=== PATIENT | female | born 1990 | race African-American/Black ===

== ENCOUNTER 2020-05-18 22:46 | Emergency (ER) | payer OTHER, SELFPAY ==
[2020-05-18 22:54] VITALS: BP 124/80; PULSE 93; RESP 16; TEMP 36.6; O2SAT 100; BMI 30.4
--- NOTE | 2020-05-18 23:10 | ED.EXTPRO ---
HPI - Extremity Problem General Chief complaint: Extremity Problem,Nontraumatic Stated complaint: RT hand to elbow pain Time Seen by Provider: 05/18/20 23:02 Source: patient Mode of arrival: Ambulatory Limitations: no limitations History of Present Illness HPI Narrative: 30-year-old otherwise healthy female here for evaluation of approximately 3 hours of tingling and the feeling of cramping in her right arm and hand. She states that she was holding a glass of water at the time and then she stated that she felt like her hand was going to cramp up. She then started having tingling up into her fingers and then it started moving upper arm into her elbow. Has never had anything like this in the past. Took some ibuprofen prior to arrival without any improvement. Review of Systems Constitutional Constitutional: Denies fever(s) Musculoskeletal Musculoskeletal: Reports tingling Comments: Right arm/hand pain Integumentary/Breasts Skin/Breast: Denies lesions and Denies rash Neurologic Neurologic: Reports tingling Hematologic/Lymphatic Hematologic/Lymphatic: Denies easy bleeding and Denies easy bruising Patient History Medical History Healthy adult (Acute) alcohol intake frequency: holidays/special occasions only Substance Use Type: does not use Exam Initial Vital Signs Initial Vital Signs: Vital Signs Temperature 97.9 F 05/18/20 22:54 Pulse Rate 93 H 05/18/20 22:54 Respiratory Rate 16 05/18/20 22:54 Blood Pressure 124/80 05/18/20 22:54 Pulse Oximetry 100 05/18/20 22:54 Const General: cooperative and comfortable Limitations: mental status not altered [facility] Head: normal to inspection and normocephalic Cardio Pulses: radial pulses present on the right Skin Lesions: no lesions Rashes: no rashes Neuro General: patient alert, patient awake and patient oriented x3 Cognition: normal cognition Speech: speech normal Motor: muscle tone normal throughout Sensory Exam: no sensory deficits noted Extrem General: normal to inspection, capillary refill normal and No edema Right upper extremity: full ROM, wrist Details: normal to inspection and normal ROM; no tenderness and no ecchymosis and hand Details: normal to inspection, normal capillary refill, neuromotor exam normal and no swelling; no cyanosis and no edema Course Orders Ordered: Discontinued Medications Tramadol HCl (Ultram) 50 mg PO NOW ONE Stop: 05/18/20 23:12 Last Admin: 05/18/20 23:16 Dose: 50 mg Documented by: SHIVA Tramadol HCl (Ultram 50mg Prepack) 1 bottle MISC SEEINSTR ONE Stop: 05/18/20 23:12 Last Admin: 05/18/20 23:16 Dose: 1 bottle Documented by: SHIVA Vital Signs Vital signs: Vital Signs - 8 hr 05/18/20 22:54 Temperature 97.9 F Pulse Rate 93 H Respiratory Rate 16 Blood Pressure 124/80 Pulse Oximetry 100 MDM - Extremity (Nontraumatic) MDM Narrative Medical decision making narrative: I do not feel any specific muscle spasms. Initially was thinking that the patient potentially was having a carpal tunnel issue given the description of her symptoms however her exam is not 100% consistent with this. She has a normal objective neurovascular exam. No trauma. Feel we can hold on radiologic studies for now. Unsure the exact etiology however will have her continue with the anti-inflammatories and also provide tramadol for symptom control. Patient was given return precautions and follow-up instructions. She expressed understanding and agreement. Discharge Plan Departure Patient Disposition: Home Clinical Impression: Arm paresthesia, right Discharge Date/Time: 05/18/20 23:23 Activity Restrictions/Additional Instructions: Recommend that you continue with the anti-inflammatories such as Motrin or Naprosyn. Also recommend light stretching. Take the tramadol you were given here in the emergency department as directed. Return to the emergency department for any new or worsening symptoms. Also recommend you contact your medical department for discussion of referral to physical therapy.
[2020-05-18] MEDS: TRAMADOL 50 MG TABLET PO (23:16)
[2020-05-18] MEDS: TRAMADOL 50 MG PREPACK 1 BOTTLE MISC (23:16)
== END 2020-05-18 23:23 | disposition home or self-care (01) ==
PROVIDERS: Emergency Provider Emergency Medicine
DX: R20.2 Paresthesia of skin (principal)
CPT/HCPCS: 99283

== ENCOUNTER 2021-04-06 08:37 | Emergency (ER) | payer OTHER, SELFPAY ==
--- NOTE | 2021-04-06 08:44 | ED_ITS ---
HPI - Extremity Injury (Upper) General Chief Complaint: Extremity Problem,Nontraumatic Stated Complaint: woke up with right wrist pain Time Seen by Provider: 04/06/21 08:44 History of Present Illness HPI narrative: 31-year-old female nonsmoker with history of carpal tunnel presents with a chief complaint of right wrist pain that woke her up this morning. 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 She has had trouble with carpal tunnel in the past but has not been wearing a splint or taking anti- inflammatories. She states that she has pain in her wrist as well as some tingling and pain and her thumb index and middle finger. She denies any known injury. She denies any redness, warmth or swelling. She has had no systemic findings such as fever, chills nor nausea or vomiting Related Data Previous Rx's Medication Instructions Recorded ketorolac 10 mg tablet 10 mg PO Q6H PRN #14 tab 04/06/21 Allergies Allergy/AdvReac Type Severity Reaction Status Date / Time No Known Drug Allergies Allergy Verified 04/06/21 08:53 Review of Systems Review of Systems Narrative: GENERAL: Denies chills, fatigue, malaise, fever, sweats. HEENT: Denies sinus pain, ear pain, sore throat, difficulty swallowing, dizz iness. RESPIRATORY: Denies dyspnea, cough, wheezing, hemoptysis, sputum. CARDIOVASCULAR: Denies chest pain, palpitations, orthopnea, edema, GASTROINTESTINAL: Denies nausea, vomiting, abdominal pain, diarrhea, constipation, melena. : Denies dysuria, frequency, incontinence, hematuria, urinary retention. MUSCULOSKELETAL: See HPI SKIN: Denies rash, skin lesions, or other NEUROLOGIC: See HPI PSYCHIATRIC: No concerning psychosocial issues. 12 point review of systems is negative except for those stated above Patient History Medical History Healthy adult Social History Smoking Status: Never smoker alcohol intake frequency: holidays/special occasions only Substance Use Type: does not use Exam Narrative Exam Narrative: GEN: AOx3 and in mild distress EYES: Pupils are equal, round, and reactive to light and accommodation. Extraoccular muscles are intact bilaterally. There is no subconjunctival hemorrhage or exudate. CHEST: Lungs are clear to auscultation bilaterally and free of wheezes, rales, or rhonchi. Heart rate is regular rhythm, there are no murmurs, clicks, rubs, or gallops. There is no chest wall tenderness. ABD: Abdomen is soft and nontender. There is no guarding or rebound. Bowel rafael nds are normal in all 4 quadrants. There is no mass or organomegaly. EXT: Full but painful range of motion overlying the lateral carpals on the volar aspect of right wrist. There is some increased pain with Tinel's sign. Reverse Phalen's worsens symptoms. No obvious swelling, erythema, warmth, induration or fluctuance. SKIN: Warm, pink, and dry. No erythema or rash Initial Vital Signs Initial Vital Signs: Vital Signs Temperature 98.3 F 04/06/21 08:53 Pulse Rate 74 04/06/21 08:53 Respiratory Rate 18 04/06/21 08:53 Blood Pressure 111/74 04/06/21 08:53 Pulse Oximetry 100 04/06/21 08:53 Course Vital Signs Vital signs: Vital Signs - 8 hr 04/06/21 08:53 Temperature 98.3 F Pulse Rate 74 Respiratory Rate 18 Blood Pressure 111/74 Pulse Oximetry 100 MDM - Extremity Injury (Upper) MDM Narrative Medical decision making narrative: Multiple diagnoses considered of the painful joint in the absence of injury including cellulitis, septic joint, gout but thought unlikely given lack of erythema, warmth or systemic findings. Exam is very consistent with likely carpal tunnel. Return precautions given and questions answered to her apparent satisfaction Discharge Plan Departure Patient Disposition: Home Clinical Impression: Acute carpal tunnel syndrome of right wrist Instructions: DI for Carpal Tunnel Syndrome Activity Restrictions/Additional Instructions: *You have been diagnosed with [carpal tunnel syndrome of your right wrist] *What to do: *Please continue to take your regular medications as directed. [x ] New medication prescriptions sent to your pharmacy: [[facility] in [place] ] [ ] Wear the splint your PCP gave you *Please follow up with your primary care provider in 2-3 days, call for an a ppointment. Let them know you were seen in the Emergency Department and that we ask that you be seen in follow up. We will electronically transmit a record of today's note if your PCP is in our system *If you do not have a primary care provider please contact the [facility] Resource line at [phone]. They will ask some questions about your medical history and help get you set up with a doctor in the community. *Return to Emergency Department if you should have any new, worsening or concerning symptoms, such as [fever greater than 101 F, shaking chills, worsening pain, persistent vomiting or other bothersome symptoms] Prescriptions: New ketorolac 10 mg tablet 10 mg PO Q6H PRN (Reason: pain) Qty: 14 RF: 0 Referrals: Yoselin Laws MD [Primary Care Provider] -
[2021-04-06 08:53] VITALS: BP 111/74; PULSE 74; RESP 18; TEMP 36.8; O2SAT 100; BMI 27.6
== END 2021-04-06 09:12 | disposition home or self-care (01) ==
PROVIDERS: Emergency Provider Emergency Medicine; PCP Family Medicine
DX: G56.01 Carpal tunnel syndrome, right upper limb (principal)
CPT/HCPCS: 99281

== ENCOUNTER 2021-09-04 13:08 | Emergency (ER) | payer OTHER, SELFPAY ==
[2021-09-04 13:32] VITALS: BP 116/68; PULSE 81; RESP 18; TEMP 36.6; O2SAT 100; BMI 30.1
--- NOTE | 2021-09-04 13:38 | DI.RAD.S_ITS ---
PROCEDURE: XR ELBOW RT MIN 3V INDICATIONS: finger pain (4th digit) and hand/wrist pain TECHNIQUE: 3 views of the elbow were acquired. COMPARISON: None. FINDINGS: Bones: No fractures or dislocations. No suspicious bony lesions. Soft tissues: No elbow joint effusion. No suspicious soft tissue calcifications. IMPRESSION: Normal right elbow. Dictated by: Dom Avery M.D. on 09/04/2021 at 14:05 Approved by: Dom Avery M.D. on 09/04/2021 at 14:05
--- NOTE | 2021-09-04 13:38 | DI.RAD.S_ITS ---
PROCEDURE: XR WRIST RT MIN 3V INDICATIONS: finger pain (4th digit) and hand/wrist pain TECHNIQUE: 3 views of the wrist were acquired. COMPARISON: None. FINDINGS: Bones: No fractures or dislocations. No suspicious bony lesions. Scaphoid view: Intact. Soft tissues: No suspicious soft tissue calcifications. IMPRESSION: No acute osseous abnormality. Dictated by: Bill Zuniga M.D. on 09/04/2021 at 13:59 Approved by: Bill Zuniga M.D. on 09/04/2021 at 14:00
--- NOTE | 2021-09-04 13:38 | DI.RAD.S_ITS ---
PROCEDURE: XR HAND RT MIN 3V INDICATIONS: finger pain (4th digit) and hand/wrist pain TECHNIQUE: 3 views of the hand(s) acquired. COMPARISON: None. FINDINGS: Bones: No fractures or dislocations. Carpal bones are normally aligned. No suspicious bony lesions. Soft tissues: No suspicious soft tissue calcifications. IMPRESSION: No visualized acute fracture or dislocation. However, if clinical concern and/or pain persist, short interval imaging followup in 7-10 days is recommended, as occult injury cannot be definitively excluded. Dictated by: Amalia Lanza M.D. on 09/04/2021 at 13:59 Approved by: Amalia Lanza M.D. on 09/04/2021 at 14:00
[2021-09-04 16:23] VITALS: BP 106/71; PULSE 82; TEMP 36.6; O2SAT 100
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
[2021-09-04 18:10] VITALS: BP 109/65; PULSE 70; RESP 16; O2SAT 100
== END 2021-09-04 18:14 | disposition home or self-care (01) ==
PROVIDERS: Emergency Provider Emergency Medicine; PCP Family Medicine
DX: S60.041A Contusion of right ring finger without damage to nail, initial encounter (principal); S01.511A Laceration without foreign body of lip, initial encounter; M25.531 Pain in right wrist; M25.521 Pain in right elbow; Y04.2XXA Assault by strike against or bumped into by another person, initial encounter
CPT/HCPCS: 73080; 73110; 73130; 99283

== ENCOUNTER 2022-01-10 19:56 | Emergency (ER) | payer OTHER, SELFPAY ==
[2022-01-10 20:15] VITALS: BP 130/85; PULSE 73; RESP 18; TEMP 36.8; O2SAT 100; BMI 29.5
--- NOTE | 2022-01-10 20:32 | DI.RAD.S_ITS ---
PROCEDURE: XR HAND RT MIN 3V INDICATIONS: gate fell on fingers, 4th and 3rd digits painful and swollen TECHNIQUE: 3 views of the hand acquired. COMPARISON: [facility], CR, XR HAND RT MIN 3V, 09/04/2021, 13:38. FINDINGS: Bones: There is a mildly displaced fracture in the 3rd distal phalanx. No dislocations. Carpal bones are normally aligned. No suspicious bony lesions. Soft tissues: No suspicious soft tissue calcifications. IMPRESSION: 1. Mildly displaced fracture of the 3rd distal phalanx. Dictated by: Landen James M.D. on 01/10/2022 at 21:46 Approved by: Landen James M.D. on 01/10/2022 at 21:48
[2022-01-10 23:33] VITALS: PULSE 75; O2SAT 98
[2022-01-10 23:34] VITALS: BP 116/68; PULSE 81; O2SAT 98
--- NOTE | 2022-01-11 00:25 | ED_ITS ---
HPI - Extremity Injury (Upper) General Chief Complaint: Extremity Injury, Upper Stated Complaint: fell into sticker de paz, gate landed on top of her Time Seen by Provider: 01/11/22 00:24 Source: patient Mode of arrival: Ambulatory Limitations: no limitations History of Present Illness HPI narrative: This is a 31-year-old female comes emergency department after falling into a de paz. Patient was working on a fence. The sense fell on to her. She fell into a sticker de paz. She has her her middle finger on her left hand. She has a small abrasion blister just adjacent to the nail. She has multiple scratches and abrasions and several small punctate areas of thorn in her feet in arms. Patient is otherwise healthy she takes citalopram daily but no other daily medications. States her tetanus is up-to-date. Denies any other injuries. No known drug allergies. Related Data Previous Rx's Medication Instructions Recorded ketorolac 10 mg tablet 10 mg PO Q6H PRN #14 tab 04/06/21 Allergies Allergy/AdvReac Type Severity Reaction Status Date / Time No Known Drug Allergies Allergy Verified 01/10/22 20:29 Review of Systems Review of Systems ROS Unobtainable: All systems reviewed & are unremarkable except as noted in HPI and below Patient History Medical History Healthy adult Social History Smoking Status: Never smoker Smoking Status: Never smoker alcohol intake frequency: holidays/special occasions only Substance Use Type: does not use Exam Narrative Exam Narrative: GENERAL: Alert and oriented x three, female in mild distress. HEENT: Head normocephalic, atraumatic, EOMI, pupils reactive, face symmetric, moist mucous membranes NECK: Supple, full range of motion CARDIOVASCULAR: Regular rate and rhythm without murmurs, rubs or gallops. RESPIRATORY: Breath sounds equal bilaterally, no wheezes rales or rhonchi. ABDOMEN: Soft, nontender. Normoactive bowel sounds all 4 quadrants. No guarding or rebound, rigidity, no mass : No CVA tenderness EXTREMITIES: Normal range of motion, no clubbing or edema. Neurovascularly intact. Patient has tenderness of distal finger, 3rd finger on the right hand. Full range of motion. Cap refill less than 3 seconds. NEUROLOGICAL: Cranial nerves II through XII grossly intact. Moving all extremities SKIN: Warm, dry, no petechiae, no rashes. Patient has multiple abrasions on bilateral upper extremities, she has a small hematoma and abrasion just proximal to the nail of the 3rd digit on her right hand. Patient has multiple thorns and small abrasions on her feet and 1 small superficial laceration on the 3rd toe of her right foot. No signs of erythema or infection noted. Initial Vital Signs Initial Vital Signs: Vital Signs Temperature 98.3 F 01/10/22 20:15 Pulse Rate 73 01/10/22 20:15 Respiratory Rate 18 01/10/22 20:15 Blood Pressure 130/85 01/10/22 20:15 Pulse Oximetry 100 01/10/22 20:15 Course Orders Ordered: ED Orders 01/10/22 20:32 XR hand RT min 3V Stat Vital Signs Vital signs: Vital Signs - 8 hr 01/10/22 20:15 01/10/22 23:33 01/10/22 23:34 Temperature 98.3 F Pulse Rate 73 75 81 Respiratory Rate 18 Blood Pressure 130/85 116/68 Pulse Oximetry 100 98 98 MDM - Extremity Injury (Upper) Imaging Data Extremity x-ray #1: Radiologist's Impression: [place] [address] XRay Report Signed Patient: Anne-Marie Newell MR#: [id number] : 1990 Acct:[id number] Age/Sex: 31 / F Date of Service: 01/10/22 Loc: ED Accession Number: [id number] ?? Procedure: XR hand RT min 3V Ordering Provider: Riddhi Souza D.O. PROCEDURE:? XR HAND RT MIN 3V ? INDICATIONS:? gate fell on fingers, 4th and 3rd digits painful and swollen ? TECHNIQUE:? 3 views of the hand acquired.? ? [facility] 13[facility]38. ? FINDINGS:? ? Bones:? There is a mildly displaced fracture in the 3rd distal phalanx.? No dislocations. ?Carpal bones are normally aligned.? No suspicious bony lesions.? ? Soft tissues:? No suspicious soft tissue calcifications.? ? ? IMPRESSION:? ? 1. Mildly displaced fracture of the 3rd distal phalanx. ? ? Dictated by: Landen James M.D. on 01/10/2022 at 21:46 ? ? Approved by: Landen James M.D. on 01/10/2022 at 21:48?? [facility] Narrative Medical decision making narrative: This is a 31-year-old female comes emergency department with complaint of injury to her 3rd digit and distal phalanx fracture, she has abrasion but no laceration overnight and not felt to be an open fracture. She has multiple abrasions and small areas of door and stuck in her feet and arms. They do not appear infected. Plan for wound care continuing monitoring. Splint on her 3rd finger with return precautions discussed. Discharge Plan Departure Patient Disposition: Home Clinical Impression: Fracture of distal phalanx of finger, Multiple abrasions Instructions: DI for Finger Fracture Activity Restrictions/Additional Instructions: You may take Tylenol up to a 1000 mg every 6 hours needed for pain and/or ibuprofen up to 600 mg every 6 hours need for pain. Wound Care: Keep wound(s) clean and dry. Wash daily with soap and water only. Soak your feet and areas with thorns 1 or 2 times daily in Epsom salts. Do not use over the counter products (alcohol or peroxide)on the wounds unless instructed by a physician. You may use triple antibiotic ointment to the affected areas particularly over 3rd finger daily. If wound condition worsens (increased/expanding redness, developing fluid blisters, or worsening pain), either contact your doctor for an urgent re- assessment , or return to the Emergency Department. Return to the Emergency Department for any new or worsening symptoms. Return if fever greater than 100.4 Fahrenheit, increased swelling, increasing pain or worsening symptoms such as increased discharge or spreading redness. Splint Care: Keep splint clean and dry. Elevated affected body part to decrease swelling. OK to use ice pack on the affected body part. Use for 15-20 minutes each time, for 5-6x per day. If you develop worsening pain, numbness, tingling, discoloration of the affected body part, loosen the splint by loosening the KEYONNA wrap, and either see your doctor for an urgent re-assessment, or return to the Emergency Department. Return to the Emergency Department for any new or worsening symptoms. Prescriptions: No Action ketorolac 10 mg tablet 10 mg PO Q6H PRN (Reason: pain) Qty: 14 0RF Referrals: Yoselin Laws MD [Primary Care Provider] - Stand Alone Forms: Work Release Note
[2022-01-11 00:47] VITALS: BP 122/70; PULSE 61; O2SAT 100
== END 2022-01-11 00:53 | disposition home or self-care (01) ==
PROVIDERS: Emergency Provider Emergency Medicine; PCP Family Medicine
DX: S62.632A Displaced fracture of distal phalanx of right middle finger, initial encounter for closed fracture (principal); S90.812A Abrasion, left foot, initial encounter; S90.811A Abrasion, right foot, initial encounter; S40.812A Abrasion of left upper arm, initial encounter; S40.811A Abrasion of right upper arm, initial encounter; W22.8XXA Striking against or struck by other objects, initial encounter
CPT/HCPCS: 73130; 99281; 99283